=== PATIENT | female | born 1945 | race Caucasian/White ===

== ENCOUNTER 2023-11-26 10:17 | Observation (INO) ==
[2023-11-26 11:42] LABS: ABS Basophils 0.1 10^3/uL (0.0-0.1); ABS Lymphocytes 0.8 10^3/uL (1.0-4.8); ABS Monocytes 0.7 10^3/uL (0.0-0.9); ABS Neutrophils 10.6 10^3/uL (1.5-7.6); ABS Nucleated RBC 0.01 10^3/ul; Eosinophil % 0.1 %; Hematocrit 39.5 % (35-45); Hemoglobin 13.2 g/dL (11.5-14.3); Lymphocyte % 6.7 %; Mean Corpuscular Hemoglobin 31.5 pg (27-33); Mean Corpuscular Hgb Conc 33.5 g/dL (31-36); Mean Corpuscular Volume 93.8 fL (80-97); Platelet Count 269 10^3/uL (150-450); Red Blood Count 4.21 10^6/uL (3.63-4.92); Red Cell Distribution Width 14.8 % (12-17); White Blood Count 12.2 10^3/uL (3.8-11.8)
[2023-11-26 12:09] LABS: Albumin/Globulin Ratio 1.5 (1-3); Calcium 8.9 mg/dL (8.6-10.3); Creatinine, Serum 0.53 mg/dL (0.51-0.95); Globulin 2.7 g/dL (2-4); Potassium 4.2 mmol/L (3.5-5.0); Total Bilirubin 0.6 mg/dL (0.2-1.0); Total Protein 6.7 g/dL (6.4-8.9); eGFR CKD-EPI 95.8 (>60)
[2023-11-26] MEDS: Iohexol 350 (CONTRAST) 500 ML MDV IV ONE (12:49)
[2023-11-26] MEDS ORDERED: Polyethylene Glycol 3350 17 GM PACKET PO PRN (14:48)
[2023-11-26] MEDS: Enoxaparin 40 MG/0.4 ML SYR SUBCUT SCH (16:02)
[2023-11-26] MEDS: Furosemide 40 mg/4 ml IV VIAL IV SLOW PU ONE (16:02)
[2023-11-26] MEDS ORDERED: Sulfur Hexaflouride MICROSPHR 25 MG VIAL ONE (16:03)
[2023-11-26] MEDS: Sulfur Hexaflouride MICROSPHR 25 MG VIAL IV PRN (16:15)
[2023-11-26 16:56] LABS: High Sensitivity Troponin 1 Hr 18 pg/mL (<15)
[2023-11-27 06:24] LABS: ABS Basophils 0.1 10^3/uL (0.0-0.1); ABS Eosinophils 0.1 10^3/uL (0.0-0.5); ABS Lymphocytes 1.4 10^3/uL (1.0-4.8); ABS Monocytes 0.9 10^3/uL (0.0-0.9); ABS Neutrophils 4.8 10^3/uL (1.5-7.6); ABS Nucleated RBC 0.01 10^3/ul; Eosinophil % 1.5 %; Hematocrit 33.3 % (35-45); Hemoglobin 11.2 g/dL (11.5-14.3); Lymphocyte % 19.5 %; Mean Corpuscular Hemoglobin 31.3 pg (27-33); Mean Corpuscular Hgb Conc 33.5 g/dL (31-36); Mean Corpuscular Volume 93.3 fL (80-97); Mean Platelet Volume 8.6 fL (7.5-11.2); Nucleated Red Blood Cells % 0.1 %/100WBC (0.0-0.8); Platelet Count 256 10^3/uL (150-450); Red Blood Count 3.57 10^6/uL (3.63-4.92); Red Cell Distribution Width 14.4 % (12-17); White Blood Count 7.2 10^3/uL (3.8-11.8)
[2023-11-27 06:36] LABS: Calcium 8.2 mg/dL (8.6-10.3); Creatinine, Serum 0.62 mg/dL (0.51-0.95); Potassium 3.4 mmol/L (3.5-5.0); eGFR CKD-EPI 92.2 (>60)
[2023-11-27 09:06] LABS: Magnesium 1.8 mg/dL (1.9-2.7)
[2023-11-27] MEDS: Furosemide 40 mg/4 ml IV VIAL IV SLOW PU SCH (09:24)
[2023-11-27 10:43] LABS: TSH Ultra Thyroid Stim Horm 2.71 mcIU/mL (0.34-5.60)
[2023-11-27 10:45] LABS: T4, Total 8.73 mcg/dL (6.09-12.23)
[2023-11-27 10:47] LABS: Free T3 3.11 pg/mL (2.5-3.9)
[2023-11-27 10:48] LABS: HDL Cholesterol 59.5 mg/dL
[2023-11-27 10:48] LABS: High Sensitivity Troponin 1 Hr 15 pg/mL (<15)
[2023-11-27 10:53] LABS: Ferritin 31.8 ng/mL (11-307)
[2023-11-27] MEDS: Magnesium Sulfate 2 gm BAG 2 GM/50 ML BAG IVPB ONE (11:17)
[2023-11-27] MEDS: Potassium Chlor 20 meq TAB.ER PO ONE (11:19)
[2023-11-28 07:40] LABS: Calcium 8.7 mg/dL (8.6-10.3); Creatinine, Serum 0.57 mg/dL (0.51-0.95); Magnesium 2.2 mg/dL (1.9-2.7); Potassium 4.2 mmol/L (3.5-5.0); eGFR CKD-EPI 94.1 (>60)
[2023-11-28] MEDS: NS 0.9% 1000 ml BAG 1,000 ML IV SCH (07:56)
[2023-11-28] MEDS ORDERED: VERAPAMIL 2.5 MG/ML 2 ML VIAL ** 5 mg/2 ml ONE (12:07)
[2023-11-28] MEDS ORDERED: Heparin 1,000 UNIT/ML 10 ml (10,000 UNITS) CATHLAB/DIALYSIS ONE (12:07)
[2023-11-28] MEDS ORDERED: Lidocaine 1% MPF 5 ML VIAL ONE (12:08)
[2023-11-28] MEDS ORDERED: Heparin 2 UNITS/ML 1000 mls 2,000 ML IV ONE (12:08)
[2023-11-28] MEDS ORDERED: nitroGLYCERIN DRIP 25,000 MCG/250 ML BTL ONE (12:08)
[2023-11-28] MEDS ORDERED: Iohexol 350 (CONTRAST) 200 ML MDV IV ONE (12:08)
[2023-11-28] MEDS ORDERED: fentaNYL 100 mcg/2 ml 50 MCG/ML VIAL ONE (12:20)
[2023-11-28] MEDS ORDERED: Midazolam 5 mg/5 ml VIAL 1 mg/ml 5 ml VIAL (5 mg) ONE (12:20)
[2023-11-28] MEDS: Midazolam 10 mg/10 ml VIAL 1 mg/ml 10 ml VIAL (10 mg) IV SLOW PU ONE (12:58)
[2023-11-28] MEDS: fentaNYL 100 mcg/2 ml 50 MCG/ML VIAL IV SLOW PU ONE (12:58)
[2023-11-28 18:21] VITALS: BP 110/56
[2023-11-30 14:52] LABS: Plasma Free Metanephrine 0.21 nmol/L (<0.50); Plasma Free Normetanephrine 0.8 nmol/L (<0.90)
== END 2023-11-28 18:30 | disposition short-term general hospital (02) ==
LOC: ED 10:17 → EDHOLD 10:17 → MED 11-27 05:37 → EDHOLD 11-27 05:38 → MEDTELE 11-27 08:05
PROVIDERS: ADMIT Internal Medicine; ATTEND Internal Medicine

== ENCOUNTER 2024-01-11 08:21 | Observation (INO) ==
[~2024-01-11 08:21] MED LIST: Lidocaine 2% PF 5 ML VIAL ONE; Midazolam 2 mg/2 ml VIAL 1 mg/ml 2 ml VIAL (2 mg) ONE; NS 0.45% 1000 ml BAG 1,000 ML IV SCH; Naloxone 0.4 mg VIAL 0.4 mg/ml 1 ml VIAL IV PRN; Propofol 10 MG/ML 20 ML BTL ONE
[2024-01-11 09:01] LABS: Rapid COVID-19 Molecular Undetected (Undetected)
[2024-01-11] MEDS ORDERED: ceFAZolin 2 GM PREMIX 2 GM/50 ML BAG ONE (09:42)
[2024-01-11] MEDS ORDERED: Tranexamic Acid 1 GM/100ML BAG 2,000 MG/200 ML BAG IV ONE (10:07)
[2024-01-11] MEDS ORDERED: Ropivacaine 5 MG/ML 20 ML VIAL 0.5% (100 MG) ONE (10:31)
[2024-01-11] MEDS ORDERED: Rocuronium 50 mg VIAL 10 mg/ml 5 ml VIAL (50 mg) ONE (10:37)
[2024-01-11] MEDS ORDERED: fentaNYL 250 mcg/5 ml 50 MCG/ML 5 ml VIAL (250 MCG) ONE (10:38)
[2024-01-11] MEDS ORDERED: Esmolol 10 MG/ML 10 ML (100 mg) IV ONE (11:09)
[2024-01-11] MEDS ORDERED: Levalbuterol HFA INHALER MDI ONE (11:26)
[2024-01-11] MEDS ORDERED: Dexamethasone IV 4 MG/ML VIAL 1 ml VIAL ONE (12:00)
[2024-01-11] MEDS ORDERED: Ondansetron 4 mg VIAL 2 MG/ML 2 ml VIAL ONE (12:00)
[2024-01-11] MEDS ORDERED: Lidocaine 2% PF 5 ML VIAL ONE (12:13)
[2024-01-11] MEDS ORDERED: Magnesium Hydroxide LIQ 30 ML UDC PO PRN (12:50)
[2024-01-11] MEDS ORDERED: Morphine 2 MG/ML SYRINGE IV PRN (12:50)
[2024-01-11] MEDS ORDERED: Ondansetron ODT 4 mg TAB 4 MG TAB PO PRN (12:50)
[2024-01-11] MEDS ORDERED: Calcium Carb (TUMS) 500 mg CHEW TAB PO PRN (12:50)
[2024-01-11] MEDS ORDERED: Lactulose 30 ml UDC PO PRN (12:50)
[2024-01-11] MEDS ORDERED: fentaNYL 100 mcg/2 ml 50 MCG/ML VIAL ONE (13:57)
[2024-01-11] MEDS: fentaNYL 100 mcg/2 ml 50 MCG/ML VIAL IV PRN (14:00)
[2024-01-11] MEDS: Acetaminophen IV 1 GM/100ML 1,000 MG/100 ML BAG IV ONE (15:01)
[2024-01-11] MEDS: Buffered Lidocaine 1% SYRIN 1 ml INTRADERM ONE (15:02)
[2024-01-11] MEDS: Lactated Ringers 1000 ml BAG 1,000 ML IV SCH ×2 (15:02→15:09)
[2024-01-11] MEDS ORDERED: KETAMINE HCL 10 MG/ML 20 ml VIAL (200 MG) ONE (15:13)
[2024-01-11] MEDS: ceFAZolin 2 GM PREMIX 2 GM/50 ML BAG IV SCH (19:50)
[2024-01-11] MEDS: Magnesium Hydroxide LIQ 30 ML UDC PO SCH (21:06)
[2024-01-12 06:11] LABS: Hematocrit 32.6 % (35-45); Hemoglobin 10.8 g/dL (11.5-14.3); Mean Platelet Volume 8.3 fL (7.5-11.2); Platelet Count 226 10^3/uL (150-450)
[2024-01-12 06:33] LABS: Calcium 8.5 mg/dL (8.6-10.3); Creatinine, Serum 0.66 mg/dL (0.51-0.95); Potassium 4.8 mmol/L (3.5-5.0); eGFR CKD-EPI 90.9 (>60)
[2024-01-12] MEDS: Vitamin THERAPEUTIC TAB PO SCH (08:40)
[2024-01-12 09:55] VITALS: BP 125/58
== END 2024-01-12 11:45 | disposition home or self-care (01) ==
LOC: OR 08:21 → SSU 08:21
PROVIDERS: ADMIT Orthopaedic Surgery Adult Reconstructive Orthopaedic Surgery; ATTEND Orthopaedic Surgery Adult Reconstructive Orthopaedic Surgery